=== PATIENT | male | born 1955 | race Caucasian/White ===

== ENCOUNTER 2016-08-11 12:05 | Emergency (ER) | payer SELFPAY ==
[~2016-08-11] VITALS: Ht 175.3 cm; Wt 82.3 kg
[~2016-08-11 12:05] MED LIST: COUM5TAB PO; DIGO0.25 PO; DILT180C56 PO; DILTCD240 PO; LISI-360 PO; SIMV20 PO; WARF6 PO
[2016-08-11 12:12] VITALS: BP 154/100; PULSE 79; RESP 16; TEMP 98.3
[2016-08-11] MEDS ORDERED: COUM1TAB PO (12:21)
[2016-08-11] MEDS ORDERED: DILT-48 PO (12:21)
[2016-08-11] MEDS ORDERED: SIMV20TA PO (12:21)
[2016-08-11] MEDS ORDERED: LISI10TA3 PO (12:21)
[2016-08-11] MEDS ORDERED: COUM7.5T PO (12:21)
[2016-08-11] MEDS ORDERED: TETANUS/DIPHTHERIA TOXOID ADULT 0.5 ML VIAL IM ONE (13:00)
[2016-08-11] MEDS ORDERED: LIDOCAINE 1%/EPINEPHrine 1:100,000 SOLN 20 ML VIAL INFIL ONE (13:00)
[2016-08-11] MEDS ORDERED: LIDOCAINE 1%/EPINEPHrine 1:100,000 SOLN 30 ML VIAL INFIL ONE (13:03)
[2016-08-11] MEDS ORDERED: CLIN1CAP6 PO (13:32)
--- NOTE | 2016-08-11 13:33 | PD ---
HPI Chief Complaint: Laceration/Skin Injury Time Seen by Provider: 12:20 Travel History International Travel<30 days: No Contact w/Intl Traveler<30days: No Traveled to known affect area: No History of Present Illness HPI 60-year-old male presents emergency department for evaluation of laceration right upper extremity. 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 Patient denies numbness or tingling in the extremity. He has full normal sensation and range of motion of the elbow wrist and fingers. Patient reports pain localized at the site of the laceration. Severity 4 out of 10. Tetanus status unknown. PFSH Past Medical History Narrative Medical Significant for A. fib on warfarin, hypertension, high cholesterol Hx Anticoagulant Therapy: Yes (coumadin) Cardiovascular Problems: Yes (htn on meds, hx a-fib) High Cholesterol: Yes Diminished Hearing: No Hypertension: Yes Tetanus Vaccination: Unknown Social History Alcohol Use: Yes (beer) Tobacco Use: No Substance Use: No Allergies-Medications (Allergen,Severity, Reaction): Coded Allergies: Augmentin (Verified Allergy, Severe, Rash, 08/11/16) Reported Meds & Prescriptions Reported Meds & Active Scripts Active Clindamycin (Clindamycin HCl) 300 Mg Cap 300 Mg PO TID Reported Coumadin (Warfarin) 1 Mg Tab 1 Mg PO DAILY Coumadin (Warfarin) 7.5 Mg Tab 7.5 Mg PO DAILY Simvastatin 20 Mg Tab 20 Mg PO DAILY Lisinopril 10 Mg Tab 10 Mg PO DAILY Diltiazem ER 24 HR 240 Mg Caper 240 Mg PO DAILY Review of Systems Except as stated in HPI: all other systems reviewed are Neg Physical Exam Narrative GENERAL: Well-nourished, well-developed patient. SKIN: Focused skin assessment warm/dry. 4 cm laceration right upper extremity HEAD: Normocephalic. EYES: No scleral icterus. No injection or drainage. NECK: Supple, trachea midline. No JVD or lymphadenopathy. CARDIOVASCULAR: Regular rate and rhythm without murmurs, gallops, or rubs. RESPIRATORY: Breath sounds equal bilaterally. No accessory muscle use. GASTROINTESTINAL: Abdomen soft, non-tender, nondistended. MUSCULOSKELETAL: No cyanosis, or edema. RUE: 4 cm laceration superior to the elbow. The wound is clean. No foreign body or tendon visualized. Joint penetration is not suspected. Patient has full range of motion of the elbow and wrist and fingers. 2+ distal pulses. Extremities neurovascular intact. BACK: Nontender without obvious deformity. No CVA tenderness. Data Data Last Documented VS Vital Signs Date Time Temp Pulse Resp B/P Pulse Ox O2 Delivery O2 Flow Rate FiO2 08/11/16 12:12 98.3 79 16 154/100 Orders Lidocai-Epi 1%-1:100,000 Inj (Xylocaine- (08/11/16 13:00) Tetanus/Diphtheria Tox Adult (Tetanus/Di (08/11/16 13:00) Lidocai-Epi 1%-1:100,000 Inj (Xylocaine- (08/11/16 13:03) MDM Medical Decision Making Medical Screen Exam Complete: Yes Emergency Medical Condition: Yes Differential Diagnosis Laceration, abrasion, contusion Narrative Course 60 year old male here for evaluation and repair of laceration right upper chimney. Patient has a 4 cm laceration superior to the right elbow. The extremity is neurovascularly intact. Joint penetration is not suspected. Laceration repaired. Patient put in sling to protect the area. Prophylactic antibiotics. Procedures Procedure Narrative LACERATION LOCATION: Right upper extremity LENGTH: 4 cm NUMBER OF STITCHES/KEVIN: Eights REPAIR: The area of the laceration was prepped with Betadine and sterilely draped. The laceration was infiltrated with 1% lidocaine with epi. The wound was copiously irrigated and explored without evidence of foreign body, tendon injury or neurovascular injury. The wound was closed using 4-0 Ethilon. This was a single layer repair. A sterile dressing was applied. The patient was advised to keep the dressing clean and dry. Patient tolerated the procedure well. Diagnosis Primary Impression: Laceration of right upper extremity Qualified Code: S41.111A - Laceration of right upper extremity, initial encounter Referrals: Primary Care Physician Patient Instructions: General Instructions, Laceration (ED) Additional Instructions: The wound should not get wet for 24 hours. He may shower beginning tomorrow. Do not submerge the wound and open water. Use the sling as instructed. Change the dressing daily. Follow-up with her primary doctor for recheck on Sunday. Return to the emergency department if he develops new or worsening symptoms. Scripts Clindamycin 300 Mg [id number] Mg PO TID #21 CAP Ref 0 Prov:Pooja Arce 08/11/16 Disposition: 01 DISCHARGE HOME Condition: Stable Pooja Arce Aug 11, 2016 13:33
== END 2016-08-11 13:53 | disposition home or self-care (01) ==
LOC: PHEFT 12:05
DX: S41.111A Laceration without foreign body of right upper arm, initial encounter (principal); W26.8XXA Contact with other sharp object(s), not elsewhere classified, initial encounter; Y99.0 Civilian activity done for income or pay; Z23 Encounter for immunization; I48.91 Unspecified atrial fibrillation; Z79.01 Long term (current) use of anticoagulants; I10 Essential (primary) hypertension; E78.00 Pure hypercholesterolemia, unspecified
CPT/HCPCS: 12002; 90471; 90714